=== PATIENT | female | born 2000 | race Caucasian/White ===

== ENCOUNTER 2018-06-28 13:55 | Emergency (ER) | payer MEDICAID ==
[~2018-06-28] VITALS: Ht 162.6 cm; Wt 53.0 kg
[~2018-06-28 13:55] MED LIST: DIAZ-351 PO; PANT-47 PO; PANT20TA2 PO
[2018-06-28 13:59] VITALS: BP 128/80
[2018-06-28] MEDS ORDERED: ibuprofen tablet 400 MG TABLET PO ONE (15:15)
[2018-06-28] MEDS ORDERED: AMOX-580 PO (15:19)
== END 2018-06-28 15:28 | disposition home or self-care (01) ==
LOC: ER 13:55
DX: K11.20 Sialoadenitis, unspecified (principal); Z88.6 Allergy status to analgesic agent
CPT/HCPCS: 99283

== ENCOUNTER 2018-12-05 15:39 | Emergency (ER) | payer MEDICAID ==
[~2018-12-05] VITALS: Ht 162.6 cm; Wt 66.6 kg
[2018-12-05 15:56] VITALS: BP 111/65
[2018-12-05 16:57] LABS: BASOPHILS % (AUTO) 0.3 % (0-1); EOSINOPHILS # (AUTO) 0.4 X10'3 (0-0.9); EOSINOPHILS % (AUTO) 3.3 % (0-6); HEMOGLOBIN 13.4 g/dl (12.0-16.0); LYMPHOCYTES # (AUTO) 3.1 X10'3 (1.1-4.8); LYMPHOCYTES % (AUTO) 23.4 % (21-51); MEAN CORPUSCULAR HEMOGLOBIN 32.3 PG (27.0-31.0); MEAN CORPUSCULAR HGB CONC 34.3 g/dL (33.0-36.5); MEAN CORPUSCULAR VOLUME 94.1 FL (78-98); MEAN PLATELET VOLUME 7.8 FL (7.4-10.4); MONOCYTES % (AUTO) 7.6 % (2-12); NEUTROPHILS # (AUTO) 8.8 X10'3 (1.8-7.7); NEUTROPHILS % (AUTO) 65.4 % (42-75); PLATELET COUNT 267 X10'3 (140-440); RED BLOOD COUNT 4.15 X10'6 (4.20-5.60); RED CELL DISTRIBUTION WIDTH 12.9 % (11.5-14.5); WHITE BLOOD COUNT 13.4 X10'3 (4.5-11.0)
[2018-12-05 17:05] LABS: ALANINE AMINOTRANSFERASE 36 U/L (12-78); ALBUMIN/GLOBULIN RATIO 1.1 (1.1-1.5); ALKALINE PHOSPHATASE 62 IU/L (20-180); ANION GAP 8 (8-16); ASPARTATE AMINO TRANSFERASE 10 U/L (10-37); BILIRUBIN,TOTAL 0.2 MG/DL (0.1-1.0); BLOOD UREA NITROGEN 17 MG/DL (7-18); BUN/CREATININE RATIO 17.2 (6.6-38.0); CALCIUM 9.3 MG/DL (8.5-10.1); CHLORIDE 106 MMOL/L (99-107); CREATININE 0.99 MG/DL (0.40-0.90); GLUCOSE 93 MG/DL (70-104); POTASSIUM 3.6 MMOL/L (3.5-5.1); SODIUM 144 MMOL/L (135-145); TOTAL CARBON DIOXIDE 29.6 MMOL/L (24-32); TOTAL PROTEIN 7.8 G/DL (6.4-8.2); eGFR 72 ML/MIN
[2018-12-05 17:46] LABS: D-DIMER < 0.19 MG/L FEU (0-0.50)
== END 2018-12-05 17:59 | disposition home or self-care (01) ==
LOC: ER 15:39
DX: R07.89 Other chest pain (principal); Z86.2 Personal history of diseases of the blood and blood-forming organs and certain disorders involving the immune mechanism; Z90.49 Acquired absence of other specified parts of digestive tract; Z87.891 Personal history of nicotine dependence; Z88.5 Allergy status to narcotic agent; Z79.899 Other long term (current) drug therapy
CPT/HCPCS: 36415; 71045; 80053; 85025; 85379; 93005; 99284

== ENCOUNTER 2019-03-22 13:21 | Emergency (ER) | payer MEDICAID ==
[~2019-03-22] VITALS: Ht 162.6 cm; Wt 70.5 kg
--- NOTE | 2019-03-22 13:39 | NUR ---
CALLED POISON CONTROL AND MD BARRETO INFORMED AND RN MARSHALL: GIVE ACTIVATED CHARCOAL AT LEAST 50G, BY 5 HOURS FULL EFFECT OF MEDICATIONS COULD BE SEEN. GIVE IV FLUIDS FOR INCREASED DROWSINESS AND TACHYCARDIA, OBTAIN A BASELINE EKG, UNLESS PT. IS SYMPTOMATIC NO NEED TO RE-DO EKG. OBTAIN METABOLIC PANEL, ASA, AND TYLENOL LEVEL 3-4 HOURS FROM NOW SX: GABAPENTIN: SEDATION SX: ABILIFY: TACHYCARDIA, TREMORS, SEDATED, COMATOSE AND HYPOTENSIVE WITH MASSIVE AMOUNTS OF CONSUMPTION... EXTRAPYRAMIDAL SYMTOMS SEEN WITH MAYCOL RECOVERY PHASE.
[2019-03-22] MEDS ORDERED: charcoal, activated 50 GM/240 ML bottle PO ONE (13:40)
[2019-03-22 13:50] LABS: BASOPHILS # (AUTO) 0.1 X10'3 (0-0.2); BASOPHILS % (AUTO) 0.6 % (0-1); EOSINOPHILS # (AUTO) 0.3 X10'3 (0-0.9); EOSINOPHILS % (AUTO) 2.5 % (0-6); HEMATOCRIT 42.1 % (35.0-45.0); HEMOGLOBIN 14.4 g/dl (12.0-16.0); LYMPHOCYTES # (AUTO) 3.5 X10'3 (1.1-4.8); LYMPHOCYTES % (AUTO) 26.2 % (21-51); MEAN CORPUSCULAR HEMOGLOBIN 31.4 PG (27.0-31.0); MEAN CORPUSCULAR HGB CONC 34.1 g/dL (33.0-36.5); MEAN PLATELET VOLUME 7.6 FL (7.4-10.4); MONOCYTES # (AUTO) 0.8 X10'3 (0-0.9); MONOCYTES % (AUTO) 6.1 % (2-12); NEUTROPHILS # (AUTO) 8.8 X10'3 (1.8-7.7); NEUTROPHILS % (AUTO) 64.6 % (42-75); PLATELET COUNT 267 X10'3 (140-440); RED BLOOD COUNT 4.57 X10'6 (4.20-5.60); RED CELL DISTRIBUTION WIDTH 13.6 % (11.5-14.5); WHITE BLOOD COUNT 13.5 X10'3 (4.5-11.0)
[2019-03-22 14:00] LABS: ALANINE AMINOTRANSFERASE 42 U/L (12-78); ALBUMIN 4.1 G/DL (3.4-5.0); ALBUMIN/GLOBULIN RATIO 1.1 (1.1-1.5); ALKALINE PHOSPHATASE 67 IU/L (20-180); ANION GAP 9 (8-16); ASPARTATE AMINO TRANSFERASE 21 U/L (10-37); BILIRUBIN,TOTAL 0.3 MG/DL (0.1-1.0); BLOOD UREA NITROGEN 14 MG/DL (7-18); BUN/CREATININE RATIO 17.3 (6.6-38.0); CHLORIDE 106 MMOL/L (99-107); CREATININE 0.81 MG/DL (0.40-0.90); GLUCOSE 93 MG/DL (70-104); POTASSIUM 3.8 MMOL/L (3.5-5.1); SODIUM 142 MMOL/L (135-145); TOTAL CARBON DIOXIDE 27.5 MMOL/L (24-32); TOTAL PROTEIN 7.7 G/DL (6.4-8.2); eGFR 90 ML/MIN
[2019-03-22 14:07] LABS: URINE HCG NEGATIVE (NEG)
[2019-03-22 14:09] LABS: ETHANOL < 0.010 GM/DL (0.0-0.010)
[2019-03-22 14:10] LABS: CLARITY,URINE CLEAR (Clear); COLOR,URINE YELLOW (Yellow); GLUCOSE, URINE NEGATIVE (Neg); KETONES,URINE NEGATIVE (Neg); LEUKOCYTE ESTERASE ,URINE MODERATE (Neg); NITRITES, URINE NEGATIVE (Neg); OCCULT BLOOD,URINE NEGATIVE (Neg); PH,URINE 5.5 (4.8-8.0); PROTEIN,URINE NEGATIVE (Neg); UROBILINOGEN,URINE 0.2 E.U/dL (0.2-1.0)
[2019-03-22 14:11] LABS: ACETAMINOPHEN < 2.0 UG/ML (10-30)
[2019-03-22 14:12] LABS: UA COLLECTION TYPE CLN CATCH MIDSTREAM
[2019-03-22 14:18] LABS: BACTERIA,URINE FEW /HPF (Neg); MUCUS STRANDS FEW /LPF (Neg); RBC,URINE 0-2 /HPF (0-2); SQUAMOUS EPITHELIAL CELL,UR FEW /LPF (FEW)
[2019-03-22 14:22] LABS: URINE AMPHETAMINE SCREEN NEGATIVE (Neg); URINE BARBITUATE SCREEN NEGATIVE (Neg); URINE BENZODIAZEPINES SCREEN POSITIVE (Neg); URINE CANNABINOID SCREEN POSITIVE (Neg); URINE COCAINE SCREEN POSITIVE (Neg); URINE METHADONE SCREEN NEGATIVE (Neg); URINE OPIATE SCREEN NEGATIVE (Neg); URINE PHENCYCLIDINE SCREEN NEGATIVE (Neg)
[2019-03-22] MEDS ORDERED: CefTRIAXone/D5W-Rocephin 1gm 50 ML IV ONE (15:05)
[2019-03-22 18:13] LABS: ACETAMINOPHEN < 2.0 UG/ML (10-30)
--- NOTE | 2019-03-22 19:34 | NUR ---
PACKET FAXED AT [address]
[2019-03-22] MEDS ORDERED: LORazepam 2 mg/ml vial IV ONE ×3 (19:35→21:30)
--- NOTE | 2019-03-22 19:59 | NUR ---
PT is brought to overflow screaming and thrashing in bed saying, "I can't stay here! why won't you let me leave?" PT calls grandmother and mother. PT is told she is on a mental health hold and what that entails. Pt yells, "You can't hold me here! I am a human I can leave!"
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
--- NOTE | 2019-03-22 20:22 | NUR ---
PT GIVEN ATIVAN 2MG IV PUSH. ORDER WAS OBTAINED AFTER PT CONTINUED ESCALATING AND CURSING AT STAFF. "YOU'RE GOING TO HAVE TO FUCKING KNOCK ME OUT. I TAKE SO MUCH OUTSIDE OF HERE. I NEED MORE FUCKING MEDICATION." PT SITS UP IN BED AND THRASHES HER ARMS AND SCREAMS.
--- NOTE | 2019-03-22 20:54 | NUR ---
The patient was given her cell phone to pull contact numbers. She was told that this would be the only time she woul be allowed to have the phone. The patient only wrote down one number and then started trying to look at her text messages, this singer songwriter asked for the phone at this time which the patient gave. She has constantly been asking for the phone ever sense. She has been told that it is agains the rules to have it, the patient is very upset about this. Q15 checks for safety, the patient is having random emotional outburts every few minutes. But is able to fully calm down and compose herself when she wants to ask staff for things. If her request isnt granted she has as she has identified as a "behavior".
--- NOTE | 2019-03-22 21:15 | NUR ---
The patient tried to elope right after being brought back to overflow and has made several statements sense then about not staying here and that she will leave. As a precaution, we are only allowing the patient to use the bathroom closest to the nurses station so she isn't able to be close to the exit.
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
[2019-03-22] MEDS ORDERED: diphenhydrAMINE 50 mg/ml inj IV ONE (21:30)
[2019-03-22] MEDS ORDERED: haloperidol lactate 5mg/ml inj IM ONE (21:30)
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
--- NOTE | 2019-03-22 21:37 | NUR ---
HALDOL 5MG IM, ATIVAN 2MG IM, BENADRYL 25 MG IM GIVEN AT 21:37
--- NOTE | 2019-03-22 22:00 | NUR ---
DID FACE TO FACE WITH PT.
--- NOTE | 2019-03-22 22:15 | NUR ---
PT STILL SCREAMING AT STAFF AND CONTINUES THRASHING. PT INFORMED THAT ONCE SHE IS CALM AND ABLE TO FOLLOW INSTRUCTION RESTRAINTS WILL BE REMOVED.
--- NOTE | 2019-03-22 22:25 | NUR ---
PT IS STARTING TO BECOME MORE CALM AND IS NOT FIGHTING THE RESTRAINTS MUCH. PT ASKED IF BATHROOM WAS NEEDED, SHE DECLINED. PT ASKED IF SHE NEEDED WATER, BUT SHE HAD FALLEN ASLEEP.
--- NOTE | 2019-03-22 22:30 | NUR ---
PT HAS BEEN MORE CALM, LEFT LEG REMOVED FROM RESTRAINT. NO SIGNS OF INJURT OBSERVED.
--- NOTE | 2019-03-22 22:40 | NUR ---
PT CON TINUES TO BE QUIET AND CALM, RIGHT LEG REMOVED FROM RESTRAINTS. NO SIGNS OF INJURY OBSERVED.
--- NOTE | 2019-03-22 22:48 | NUR ---
RIGHT UE AND LEFT UE RESTRAINTS REMOVED NO SIGNS OF IN JURY OBSERVED. PT IS NOW COMPLETELY OUT OF RESTRAINTS, CALM AND RESTING QUIETLY IN BED. VITAL SIGNS WNL.
--- NOTE | 2019-03-22 23:09 | NUR ---
POISON CONTROL CALLED FOR PT'S UPDATED STATUS AND LABS.
--- NOTE | 2019-03-22 23:30 | NUR ---
PT ASLEEP IN BED ON HER BACK. VITAL SIGNS RECHECKED, WNL.
--- NOTE | 2019-03-23 01:00 | NUR ---
Pt rolled over onto R side. RR WNL. warm blanket given
--- NOTE | 2019-03-23 02:46 | NUR ---
PT ROLLS INTO LEFT SIDE IN BED. PT REMAINS QUIET RR WNL.
--- NOTE | 2019-03-23 03:30 | NUR ---
Pt asleep laying on her left side. RR WNL no signs or symptoms of distress at this time.
--- NOTE | 2019-03-23 05:01 | NUR ---
PT sleeping on R side RR 14. No signs or symptoms of distress at this time.
--- NOTE | 2019-03-23 05:45 | NUR ---
PT's IV DC'd, no IV medications ordered, and pt states that it is uncomfotable.
[2019-03-23 05:47] VITALS: BP 100/57
--- NOTE | 2019-03-23 07:00 | NUR ---
pt is resting in his room. no medical concerns at this time.
--- NOTE | 2019-03-23 08:00 | NUR ---
pt is resting
--- NOTE | 2019-03-23 09:00 | NUR ---
pt resting in bed
[2019-03-23] MEDS ORDERED: LORazepam 1 MG tablet PO ONE (10:35)
--- NOTE | 2019-03-23 11:00 | NUR ---
pt is awake and talking on the phone
--- NOTE | 2019-03-23 11:14 | NUR ---
PTS MOTHERS (MAO REA) CELL PHONE NUMBER IS [phone] PTS STEP-FATHER (AYAN) CELL PHONE NUMBER IS [phone]
--- NOTE | 2019-03-23 12:00 | NUR ---
pt is resting in his room. no medical concerns at this time.
[2019-03-23] MEDS ORDERED: CEPH500C5 PO (13:22)
== END 2019-03-23 14:19 | disposition home or self-care (01) ==
LOC: ER 13:21
DX: T42.6X2A Poisoning by other antiepileptic and sedative-hypnotic drugs, intentional self-harm, initial encounter (principal); G92 Toxic encephalopathy; F32.9 Major depressive disorder, single episode, unspecified; F19.10 Other psychoactive substance abuse, uncomplicated; N39.0 Urinary tract infection, site not specified; F15.90 Other stimulant use, unspecified, uncomplicated; F14.90 Cocaine use, unspecified, uncomplicated; F17.200 Nicotine dependence, unspecified, uncomplicated; Z90.49 Acquired absence of other specified parts of digestive tract; Z88.5 Allergy status to narcotic agent; Z79.899 Other long term (current) drug therapy; Y92.89 Other specified places as the place of occurrence of the external cause
CPT/HCPCS: 36415; 71045; 80053; 80178; 80305; 80320; 80329; 81001; 81025; 84443; 85025; 93005; 96365; 96372; 96375; 96376; 99285; J0696; J1200; J1630; J2060

== ENCOUNTER 2019-05-17 16:30 | Emergency (ER) | payer MEDICAID ==
[~2019-05-17] VITALS: Ht 162.6 cm; Wt 73.6 kg
[~2019-05-17 16:30] MED LIST changes: +CEPH500C5 PO
[2019-05-17] MEDS ORDERED: azithromycin 250mg tablet PO ONE (16:55)
[2019-05-17] MEDS ORDERED: CefTRIAXone 250MG IM Kit w/LIDOcaine IM ONE (16:55)
--- NOTE | 2019-05-17 17:11 | NUR ---
Chaperoned exam performed by MARI Riggs at pt's bedside.
[2019-05-17 17:12] LABS: CLARITY,URINE CLEAR (Clear); COLOR,URINE YELLOW (Yellow); GLUCOSE, URINE NEGATIVE (Neg); KETONES,URINE NEGATIVE (Neg); LEUKOCYTE ESTERASE ,URINE NEGATIVE (Neg); NITRITES, URINE NEGATIVE (Neg); OCCULT BLOOD,URINE NEGATIVE (Neg); PH,URINE 7.5 (4.8-8.0); PROTEIN,URINE NEGATIVE (Neg); URINE HCG NEGATIVE (NEG); UROBILINOGEN,URINE 0.2 E.U/dL (0.2-1.0)
[2019-05-17 17:17] LABS: UA COLLECTION TYPE VOIDED
[2019-05-17 17:45] VITALS: BP 138/68
== END 2019-05-17 17:47 | disposition home or self-care (01) ==
LOC: ER 16:31
DX: N89.8 Other specified noninflammatory disorders of vagina (principal); R30.0 Dysuria; F15.90 Other stimulant use, unspecified, uncomplicated; F14.90 Cocaine use, unspecified, uncomplicated; Z90.49 Acquired absence of other specified parts of digestive tract; Z88.5 Allergy status to narcotic agent; Z79.899 Other long term (current) drug therapy
CPT/HCPCS: 36415; 81003; 81025; 87491; 87591; 96372; 99284; J0696

== ENCOUNTER 2019-05-21 20:27 | Emergency (ER) | payer MEDICAID ==
[~2019-05-21] VITALS: Ht 165.1 cm; Wt 72.7 kg
--- NOTE | 2019-05-21 20:33 | NUR ---
IS HERE, SHE IS BEING VERY RUDE. "DON'T FUCKEN TOUCH ME"
--- NOTE | 2019-05-21 20:42 | NUR ---
AMEND: SHE CONTINUES TO TAKE HER SCRUB TOP AND TURN IT INSIDE OUT. SHE WAS ASKED MULTIPLE TIMES TO CHANGE OUT. SECURITY WAS SUMMONED TO ASSIST IN CHANGING HER OUT. SHE WAS CHANGED OUT. LAB CAME AND KETTY BLOOD. SHE WAS ADMINISTERED HER INJECTIONS.
--- NOTE | 2019-05-21 20:42 | NUR ---
PT JUST WILL NOT CHANGE OUT INTO GREEN SCRUBS, SHE CONTINUES TO BE ABRASIVE THAT SHE ISN'T CHANGING INTO THEM, SHE TIOI
[2019-05-21] MEDS ORDERED: haloperidol lactate 5mg/ml inj IM ONE (20:50)
[2019-05-21] MEDS ORDERED: LORazepam 2 mg/ml vial IM ONE (20:50)
--- NOTE | 2019-05-21 20:57 | NUR ---
WE ARE TRYING TO NOT HAVE TO PUT HER IN RESTRAINTS. SHE IS VERY UNCOOPERATIVE, NOT WANTING TO FOLLOW DIRECTIONS. SHE IS BLAMING US FOR THINGS THAT WE HAVE NOT SAID. AT ONE POINT SHE SAID SOMEONE CALLED HER A STUPID CUNT. NO ONE EVER SAID THAT.
[2019-05-21 21:04] LABS: BASOPHILS # (AUTO) 0.1 X10'3 (0-0.2); BASOPHILS % (AUTO) 0.7 % (0-1); EOSINOPHILS # (AUTO) 0.1 X10'3 (0-0.9); EOSINOPHILS % (AUTO) 0.4 % (0-6); HEMATOCRIT 47.8 % (35.0-45.0); HEMOGLOBIN 16.3 g/dl (12.0-16.0); LYMPHOCYTES # (AUTO) 4.3 X10'3 (1.1-4.8); LYMPHOCYTES % (AUTO) 31.8 % (21-51); MEAN CORPUSCULAR HEMOGLOBIN 31.4 PG (27.0-31.0); MEAN CORPUSCULAR HGB CONC 34.2 g/dL (33.0-36.5); MEAN CORPUSCULAR VOLUME 92.1 FL (78-98); MEAN PLATELET VOLUME 7.2 FL (7.4-10.4); MONOCYTES # (AUTO) 0.9 X10'3 (0-0.9); MONOCYTES % (AUTO) 6.6 % (2-12); NEUTROPHILS # (AUTO) 8.2 X10'3 (1.8-7.7); NEUTROPHILS % (AUTO) 60.5 % (42-75); PLATELET COUNT 336 X10'3 (140-440); RED BLOOD COUNT 5.19 X10'6 (4.20-5.60); RED CELL DISTRIBUTION WIDTH 13.3 % (11.5-14.5); WHITE BLOOD COUNT 13.6 X10'3 (4.5-11.0)
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
--- NOTE | 2019-05-21 21:08 | NUR ---
She continues to be beligerent. Telling us to look up the policies. That we have no idea what we are doing. She is very rude and argumentative. Encouraged her to rest.
[2019-05-21 21:18] LABS: ANION GAP 7 (8-16); BLOOD UREA NITROGEN 9 MG/DL (7-18); CHLORIDE 104 MMOL/L (99-107); CREATININE 0.84 MG/DL (0.40-0.90); GLUCOSE 83 MG/DL (70-104); POTASSIUM 4.8 MMOL/L (3.5-5.1); SODIUM 140 MMOL/L (135-145); TOTAL CARBON DIOXIDE 28.8 MMOL/L (24-32)
[2019-05-21 21:19] LABS: ALANINE AMINOTRANSFERASE 19 U/L (12-78); ALBUMIN 4.5 G/DL (3.4-5.0); ALKALINE PHOSPHATASE 72 IU/L (20-180); ASPARTATE AMINO TRANSFERASE 18 U/L (10-37); BILIRUBIN,TOTAL 0.4 MG/DL (0.1-1.0); BUN/CREATININE RATIO 10.7 (6.6-38.0); CALCIUM 9.9 MG/DL (8.5-10.1); ETHANOL < 0.010 GM/DL (0.0-0.010); TOTAL PROTEIN 9.1 G/DL (6.4-8.2); eGFR 86 ML/MIN
[2019-05-21 21:22] LABS: ACETAMINOPHEN < 2.0 UG/ML (10-30)
--- NOTE | 2019-05-21 21:48 | NUR ---
PATIENT UNWILLING TO ANSWER QUESTIONS, UNABLE TO COMPLETE FULL ASSESSMENT AT THIS TIME
--- NOTE | 2019-05-21 21:49 | NUR ---
[employer] AT BEDSIDE, PATIENT UNABLE TO ANSWER QUESTIONS AT THIS TIME. CASE #[id number]
--- NOTE | 2019-05-21 22:30 | NUR ---
PATIENT SLEEPING ON BACK
--- NOTE | 2019-05-21 23:30 | NUR ---
PATIENT SLEEPING ON RIGHT SIDE
--- NOTE | 2019-05-22 00:30 | NUR ---
PATIENT CONTINUING TO SLEEP ON RIGHT SIDE
--- NOTE | 2019-05-22 01:00 | NUR ---
PATIENT WOKE UP, ASKED WHERE SHE WAS AND HOW SHE GOT HERE. EXPLAINED PRIOR EVENTS TO PATIENT AND THAT SHE IS ON A HOLD AT THIS TIME AND WILL BE EVALUATED IN THE AM
--- NOTE | 2019-05-22 02:30 | NUR ---
PATIENT SLEEPING ON LEFT SIDE
--- NOTE | 2019-05-22 03:30 | NUR ---
PATIENT CONTINUING TO SLEEP ON LEFT SIDE, GIVEN ADDITIONAL BLANKET
--- NOTE | 2019-05-22 04:44 | NUR ---
PATIENT SLEEPING ON BACK
--- NOTE | 2019-05-22 05:25 | NUR ---
Note tabatha in ED - 05/22/19 at 0526 by BARB PT WAS MOVED BACK TO [facility] ER APPROX 0100 HRS. SHE HAS SLEPT THROUGH THE NIGHT WITH THE EXCEPTION OF GETTING UP TO VOID ON ONE OCCASSION. PT IN VIEW OF RN STATION.
--- NOTE | 2019-05-22 06:30 | NUR ---
PT SLEEPING ON HER L SIDE. RR EQUAL AND NONLABORED.
--- NOTE | 2019-05-22 08:19 | NUR ---
PT SLEEPING ON HER R SIDE. RR EQUAL AND NONLABORED. HR 81 BPM.
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
--- NOTE | 2019-05-22 09:05 | NUR ---
SECURITY AT BEDSIDE, PT UP TO BEDSIDE COMMODE AND URINE SAMPLE OBTAINED.
--- NOTE | 2019-05-22 09:07 | NUR ---
PT REQUESTED MD TO BEDSIDE. WHEN HE ARRIVED AT BEDSIDE, MD COLMENARES ASKED PT WHAT WHERE THE BUMP ON HER HEAD IS, AND PT REPLIED "YOU FIGURE IT OUT, YOU'RE THE MOTHER FUCKING DOCTOR".
[2019-05-22] MEDS ORDERED: diphenhydrAMINE 50 mg/ml inj IM ONE (09:10)
[2019-05-22] MEDS ORDERED: haloperidol lactate 5mg/ml inj IM ONE (09:10)
[2019-05-22] MEDS ORDERED: LORazepam 2 mg/ml vial IM ONE (09:10)
--- NOTE | 2019-05-22 09:27 | NUR ---
Pt attmepted to run out of department. Stopped by PCT and taken back to ER room 7. Placed in 4 point hard restraints.
[2019-05-22 09:35] LABS: URINE AMPHETAMINE SCREEN POSITIVE (Neg); URINE BARBITUATE SCREEN NEGATIVE (Neg); URINE BENZODIAZEPINES SCREEN POSITIVE (Neg); URINE CANNABINOID SCREEN POSITIVE (Neg); URINE COCAINE SCREEN NEGATIVE (Neg); URINE METHADONE SCREEN NEGATIVE (Neg); URINE OPIATE SCREEN NEGATIVE (Neg); URINE PHENCYCLIDINE SCREEN NEGATIVE (Neg)
[2019-05-22 09:39] VITALS: BP 123/81
[2019-05-22 09:46] LABS: URINE HCG NEGATIVE (NEG)
[2019-05-22 09:49] LABS: CLARITY,URINE CLOUDY (Clear); COLOR,URINE YELLOW (Yellow); GLUCOSE, URINE NEGATIVE (Neg); KETONES,URINE NEGATIVE (Neg); LEUKOCYTE ESTERASE ,URINE NEGATIVE (Neg); NITRITES, URINE NEGATIVE (Neg); OCCULT BLOOD,URINE NEGATIVE (Neg); PROTEIN,URINE TRACE mg/dl (Neg); UROBILINOGEN,URINE 0.2 E.U/dL (0.2-1.0)
[2019-05-22 09:57] LABS: UA COLLECTION TYPE VOIDED
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
[2019-05-22 10:03] LABS: BACTERIA,URINE FEW /HPF (Neg); MUCUS STRANDS FEW /LPF (Neg); RBC,URINE 0-2 /HPF (0-2); SQUAMOUS EPITHELIAL CELL,UR MANY /LPF (FEW)
--- NOTE | 2019-05-22 10:09 | NUR ---
SPOKE WITH BEAU Pond. HE WILL SEE PT IN 15MIN TO INTERVIEW HER.
--- NOTE | 2019-05-22 11:18 | NUR ---
Father contacted to provide a ride for her. He will call back in a few minutes to give details. Pt refuses to go to [facility] or the [place].
--- NOTE | 2019-05-22 11:26 | NUR ---
Spoke with Father, He states that the Patient "Always has a safe place to go if she wants it" at her mothers house. Pt elected to leave on foot rather than wait for a ride.
== END 2019-05-22 11:29 | disposition home or self-care (01) ==
LOC: ER 20:27
DX: R45.851 Suicidal ideations (principal); F19.10 Other psychoactive substance abuse, uncomplicated; F32.9 Major depressive disorder, single episode, unspecified; F15.90 Other stimulant use, unspecified, uncomplicated; F14.90 Cocaine use, unspecified, uncomplicated; Z90.49 Acquired absence of other specified parts of digestive tract; Z98.890 Other specified postprocedural states; Z88.5 Allergy status to narcotic agent; Z79.2 Long term (current) use of antibiotics; Z79.899 Other long term (current) drug therapy
CPT/HCPCS: 36415; 80053; 80305; 80320; 80329; 81001; 81025; 85025; 96372; 99285; J1630; J2060

== ENCOUNTER 2020-01-08 09:13 | Emergency (ER) | payer MEDICAID ==
[~2020-01-08] VITALS: Ht 162.6 cm; Wt 61.4 kg
[2020-01-08 09:35] VITALS: BP 138/85
--- NOTE | 2020-01-08 09:59 | NUR ---
MARI GRAY TOLD OF PATIENT WITH COVID SYPTOMS
== END 2020-01-08 11:18 | disposition home or self-care (01) ==
LOC: ER 09:14
DX: H92.01 Otalgia, right ear (principal); R51.9 Headache, unspecified; D64.9 Anemia, unspecified; F32.9 Major depressive disorder, single episode, unspecified; F15.10 Other stimulant abuse, uncomplicated; F14.10 Cocaine abuse, uncomplicated; Z88.5 Allergy status to narcotic agent; Z90.49 Acquired absence of other specified parts of digestive tract; Z79.899 Other long term (current) drug therapy; Z79.2 Long term (current) use of antibiotics
CPT/HCPCS: 99284

== ENCOUNTER 2020-01-22 17:33 | Emergency (ER) | payer MEDICAID ==
[~2020-01-22] VITALS: Ht 162.6 cm; Wt 61.4 kg
[2020-01-22 17:44] VITALS: BP 147/110
--- NOTE | 2020-01-22 18:43 | NUR ---
Pt continues to be tearful and crying. Pt has stable vitals except the heart rate continues to be elevated.
[2020-01-22 19:08] LABS: BASOPHILS # (AUTO) 0.1 X10'3 (0-0.2); BASOPHILS % (AUTO) 0.5 % (0-1); EOSINOPHILS # (AUTO) 0.1 X10'3 (0-0.9); EOSINOPHILS % (AUTO) 1.2 % (0-6); HEMATOCRIT 44.8 % (35.0-45.0); HEMOGLOBIN 15.1 g/dl (12.0-16.0); LYMPHOCYTES # (AUTO) 2.1 X10'3 (1.1-4.8); LYMPHOCYTES % (AUTO) 19.6 % (21-51); MEAN CORPUSCULAR HEMOGLOBIN 30.8 PG (27.0-31.0); MEAN CORPUSCULAR HGB CONC 33.7 g/dL (33.0-36.5); MEAN CORPUSCULAR VOLUME 91.4 FL (78-98); MEAN PLATELET VOLUME 7.3 FL (7.4-10.4); MONOCYTES # (AUTO) 0.8 X10'3 (0-0.9); NEUTROPHILS # (AUTO) 7.5 X10'3 (1.8-7.7); NEUTROPHILS % (AUTO) 70.7 % (42-75); PLATELET COUNT 378 X10'3 (140-440); WHITE BLOOD COUNT 10.6 X10'3 (4.5-11.0)
[2020-01-22 19:27] LABS: ALANINE AMINOTRANSFERASE 32 U/L (12-78); ALBUMIN 4.3 G/DL (3.4-5.0); ALBUMIN/GLOBULIN RATIO 0.9 (1.1-1.5); ALKALINE PHOSPHATASE 108 IU/L (46-116); ANION GAP 9 (8-16); ASPARTATE AMINO TRANSFERASE 18 U/L (10-37); BILIRUBIN,TOTAL 0.5 MG/DL (0.1-1.0); BLOOD UREA NITROGEN 7 MG/DL (7-18); BUN/CREATININE RATIO 8.8 (6.6-38.0); CHLORIDE 102 MMOL/L (99-107); GLUCOSE 102 MG/DL (70-104); SODIUM 140 MMOL/L (135-145); TOTAL CARBON DIOXIDE 28.7 MMOL/L (24-32); TOTAL PROTEIN 9.3 G/DL (6.4-8.2); eGFR > 90 ML/MIN
== END 2020-01-22 19:45 | disposition home or self-care (01) ==
LOC: ER 17:34
DX: F41.9 Anxiety disorder, unspecified (principal); R20.0 Anesthesia of skin; R51.9 Headache, unspecified; H92.09 Otalgia, unspecified ear; F32.9 Major depressive disorder, single episode, unspecified; F15.90 Other stimulant use, unspecified, uncomplicated; F14.90 Cocaine use, unspecified, uncomplicated; Z86.2 Personal history of diseases of the blood and blood-forming organs and certain disorders involving the immune mechanism; Z90.89 Acquired absence of other organs; Z98.890 Other specified postprocedural states; Z72.89 Other problems related to lifestyle; Z88.5 Allergy status to narcotic agent; Z79.2 Long term (current) use of antibiotics; Z79.899 Other long term (current) drug therapy
CPT/HCPCS: 36415; 80053; 85025; 93005; 99284

== ENCOUNTER 2022-08-31 17:42 | Emergency (ER) | payer MEDICAID ==
[~2022-08-31] VITALS: Ht 162.6 cm; Wt 56.8 kg
[~2022-08-31 17:42] MED LIST changes: -CEPH500C5 PO
[2022-08-31 18:10] VITALS: BP 139/100
[2022-08-31] MEDS ORDERED: potassium Cl 20 mEq SR tablet PO STA (19:09)
== END 2022-08-31 19:17 | disposition home or self-care (01) ==
LOC: ER 17:42
DX: E86.0 Dehydration (principal); F10.90 Alcohol use, unspecified, uncomplicated; F15.90 Other stimulant use, unspecified, uncomplicated; F14.10 Cocaine abuse, uncomplicated; Z88.5 Allergy status to narcotic agent; Z98.890 Other specified postprocedural states; Y90.9 Presence of alcohol in blood, level not specified
CPT/HCPCS: 99283

== ENCOUNTER 2022-11-06 16:59 | Emergency (ER) | payer MEDICAID ==
[~2022-11-06] VITALS: Ht 162.6 cm; Wt 56.6 kg
[2022-11-06 17:07] VITALS: BP 141/82; PULSE 66; RESP 16; TEMP 98.6; O2SAT 100
== END 2022-11-06 17:44 | disposition home or self-care (01) ==
LOC: ER 17:00
DX: Z04.6 Encounter for general psychiatric examination, requested by authority (principal); F15.90 Other stimulant use, unspecified, uncomplicated; F14.90 Cocaine use, unspecified, uncomplicated; Z88.5 Allergy status to narcotic agent; Z79.899 Other long term (current) drug therapy
CPT/HCPCS: 99281